=== PATIENT | male | born 1955 | race Caucasian/White ===

== ENCOUNTER 2025-05-25 15:40 | Outpatient (CLI) | payer OTHER, MEDICARE, SELFPAY | END 2025-05-25 15:41 | disposition home or self-care (01) | LOC: AMB 05-29 13:03 | PROVIDERS: Visit Provider Family Medicine | DX: S50.811A Abrasion of right forearm, initial encounter (principal); V43.51XA Car driver injured in collision with sport utility vehicle in traffic accident, initial encounter; Y92.410 Unspecified street and highway as the place of occurrence of the external cause | CPT/HCPCS: A0998 ==

== ENCOUNTER 2025-05-25 17:05 | Emergency (ER) | payer OTHER, MEDICARE, SELFPAY ==
--- OUTSIDE RECORDS SUMMARY | 2021-12-02 05:31 | XMS_ITS | Continuity of Care Document ---
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 Name Role Phone Larisa Hoffmann CRNA Unavailable Unavailable Allergies, Adverse Reactions, Alerts Substance Reaction Status Criticality shellfish derived Anaphylactic shock(severe) Active No Information No Known Drug Allergies Resolved No I nformation Medications Medication Instructions Dosage Effective Dates (start - stop) Status Comments Ozempic 1 mg/dose (4 mg/3 mL) subcutaneous pen injector inject (1MG) by subcutaneous route every week on the same day of each week 1 MG - Active lisinopril 10 mg tablet take 1 tablet by oral route every day 10 MG - Active metformin 500 mg tablet take 2 tablet by oral route 2 times every day 1000 MG - Active atenolol 50 mg tablet take 1 tablet by oral route every day 50 MG - Active glipizide 10 mg tablet take 1 tablet by oral route every day before a meal 10 MG - Active atorvastatin 10 mg tablet take 1 tablet by oral route every day 10 MG - Active Aspirin Low Dose 81 mg Tab, Delayed Release Take one tablet by mouth daily - Active Victoza 3-Rahul 0.6 mg/0.1 mL (18 mg/3 mL) subcutaneous pen injector inject 1.8 milliliter by subcutaneous route every day 10.8 MG - No Longer Active Procedures Procedure Date Colonoscopy Flex; W/remov Les- Level Iv-surg Path Gross/micro Colonoscopy Flex; W/bx 1/mx Level Iv-surg Path Gross/micro 17 Colonoscopy Flex; Dx (sep Pro) 07 Advance Directives Directive Yes / No Effective Date File Name No Information Encounters Encounter Description Practice Location Reason(s) For Visit Diagnoses Date Provider Providers Copied on Encounter [facility] [place], [address] [address], [place], [place], [id number], [place] tel:[phone] [facility] No Information 2 Caruthersberna ESPINOZA Larisa. [address] [facility], [facility] [address], [place], [place], [id number], [place]. tel:[phone] Referring Provider: Blade Mckee MD, [address] [facility] [address], [place], [address] . tel:[phone] [facility] [place], [address] [address], [facility] [place], [address], [place] tel:[phone] [facility] [place] Colorectal polyp detected on colonoscopyInter nal hemorrhoidsEncou nter for screening for malignant neoplasm of colonPersonal history of colonic polypsBenign neoplasm of sigmoid colonOther hemorrhoidsBenig n neoplasm of sigmoid colon 2 Rafi Murguia. [address] [facility], [facility] [address], [place], [place], [address], [place]. tel:[phone] Referring Provider: Referral Self, USE FOR SELF REFERRALS. [facility] [place], [address] [address], [place], [id number], [place] tel:[phone] [facility] [address] No Information 2 Brendan Howard. [address] [facility], [facility] [address], [place], [place], [address], [place]. tel:[phone] [facility] [place], [address] [address], [place], [address], [place] tel:[phone] [facility] Polyp of colon, unspecified part of colon, unspecified typeDiverticulos is large intestine w/o perforation or abscess w/o bleedingEncounte r for screening for malignant neoplasm of colonBenign neoplasm of transverse colonDvrtclos of lg int w/o perforation or abscess w/o bleeding 201 7 Birdie LEONARDO [facility]. [address] [facility], [address], [place], [place], [address], [place]. tel:[phone] Referring Provider: Referral Self, USE FOR SELF REFERRALS. [facility], [address] [address], [place], [place], [address], [place] tel:[phone] [place] [facility] Colon Cancer Screening 2200 7 No Information Referring Provider: Butch Ramos, [address] [place], [address]. tel:[phone] Family History Family Member Type Diagnosis Age At Onset Son Problem (finding) Alive and well Father Problem (finding) Sister Problem (finding) Brother Problem (finding) Alive and well Sister Problem (finding) Alive and well Daughter Problem (finding) Alive and well Mother Problem (finding) Son Problem (finding) diverticulitis of colon Immunizations Vaccine Date Status Comments SARS-COV-2 (COVID-19) vaccin e, mRNA, spike protein, LNP, preservative free, 100 mcg/0.5mL dose or 50 mcg/0.25mL dose administered Note: [facility] bi -directional interface ; Source: Other Registry SARS-COV-2 (COVID-19) vaccin e, mRNA, spike protein, LNP, preservative free, 30 mcg/0.3mL dose administered Note: [facility] bi-direct ional interface ; Source: Other Registry Pneumovax 23 administered Note: [facility] bi-d irectional interface ; Source: Other Registry SARS-COV-2 (COVID-19) vaccin e, mRNA, spike protein, LNP, preservative free, 30 mcg/0.3mL dose administered Note: [facility] bi-direct ional interface ; Source: Other Registry SARS-COV-2 (COVID-19) vaccin e, mRNA, spike protein, LNP, preservative free, 30 mcg/0.3mL dose administered Note: [facility] bi-direct ional interface ; Source: Other Registry Afluria Qd administered Note: [facility] bi-directional interface ; Source: Other Registry zoster vaccine recombinant administered N ote: [facility] bi-directional interface ; Source: Other Registry zoster vaccine recombinant administered N ote: [facility] bi-directional interface ; Source: Other Registry tetanus and diphtheria toxoi ds, adsorbed, preservative free, for adult use (5 Lf of tetanus toxoid and 2 Lf of diphtheria toxoid) administered Note: [facility] bi-direct ional interface ; Source: Other Registry Influenza administered Note: [facility] bi-d irectional interface ; Source: Other Registry Afluria Qd administered Note: [facility] bi-directional interface ; Source: Other Registry Afluria Qd administered Note: [facility] bi-directional interface ; Source: Other Registry Afluria Qd administered Note: [facility] bi-directional interface ; Source: Other Registry Engerix-B administered Note: [facility] bi-d irectional interface ; Source: Other Registry Engerix-B administered Note: [facility] bi-d irectional interface ; Source: Other Registry zoster vaccine, live administered Note: [facility] bi-directional interface ; Source: Other Registry Afluria Qd administered Note: [facility] bi-directional interface ; Source: Other Registry Engerix-B administered Note: [facility] bi-d irectional interface ; Source: Other Registry Influenza, seasonal, injectable administe red Note: [facility] bi- directional interface ; Source: Other Registry Influenza, seasonal, injectable administe red Note: [facility] bi- directional interface ; Source: Other Registry Novel [id number], all formulations administered Note: [facility] bi-direct ional interface ; Source: Other Registry Influenza, seasonal, injectable administe red Note: [facility] bi- directional interface ; Source: Other Registry Influenza, seasonal, injectable administe red Note: [facility] bi- directional interface ; Source: Other Registry Pneumovax 23 administered Note: [facility] bi-d irectional interface ; Source: Other Registry tetanus toxoid, reduced diphtheria toxoid, and acellular pertussis vaccine, adsorbed administered Note: [facility] b i-directional interface ; Source: Other Registry Payers Payer name Insurance type Covered alliance party ID Authoriza tion(s) Blue Cross Medicare Advantage [id number] Social History Type Description Quantity Date Captured Comments Sex Male Smoking Status No Information Chief Complaint And Reason For Visit No Information Reason For Referral Reason For Referral No Information History Of Present Illness Encounter Date Complaint History Of Prese nt Illness No Information Functional Status Date Functional Assessmen t No Information Instructions Date Instruction Additional Infor mation High Fiber Diet Related to Color ectal polyp detected on colonoscopy Colon Polyps Related to Color ectal polyp detected on colonoscopy Hemorrhoids Related to Color ectal polyp detected on colonoscopy Colon Cancer Prevention Related to Polyp of colon, unspecified part of colon, unspecified type Colon Polyps Related to Polyp of colon, unspecified part of colon, unspecified type Diverticulosis/Diverticulitis Re lated to Polyp of colon, unspecified part of colon, unspecified type High Fiber Diet Related to Polyp of colon, unspecified part of colon, unspecified type Assessments Type Assessment Date No Information Patient Care Teams Name Effective Dates (start - stop) Status Members No Information
--- OUTSIDE RECORDS SUMMARY | 2021-12-02 05:31 | XMS_ITS | Continuity of Care Document ---
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 [address] [facility], [facility] [address], [place], [place], [address], [place]. tel:[phone] Referring Provider: Blade Mckee MD, [address] [facility] [address], [place], [address] . tel:[phone] [facility] [place], [address] [address], [facility] [place], [address], [place] tel:[phone] [facility] [place] Colorectal polyp detected on colonoscopyInter nal hemorrhoidsEncou nter for screening for malignant neoplasm of colonPersonal history of colonic polypsBenign neoplasm of sigmoid colonOther hemorrhoidsBenig n neoplasm of sigmoid colon 2 Rafi Murguia. [address] [facility], [facility] [address], [place], [place], [address], [place]. tel:[phone] Referring Provider: Referral Self, USE FOR SELF REFERRALS. [facility] [place], [address] [address], [place], [address], [place] tel:[phone] [facility] No Information 2 Brendan Howard. [address] [facility], [facility] [address], [place], [place], [address], [place]. tel:[phone] [facility] [place], [address] [address], [place], [address], [place] tel:[phone] [facility] Polyp of colon, unspecified part of colon, unspecified typeDiverticulos is large intestine w/o perforation or abscess w/o bleedingEncounte r for screening for malignant neoplasm of colonBenign neoplasm of transverse colonDvrtclos of lg int w/o perforation or abscess w/o bleeding 201 7 Birdie LEONARDO [facility]. [address] [facility], [address], [place], [place], [address], [place]. tel:[phone] Referring Provider: Referral Self, USE FOR SELF REFERRALS. [facility], [address] [address], [place], [place], [address], [place] tel:[phone] [place] [facility] Colon Cancer Screening 2200 7 No Information Referring Provider: Butch Ramos, [address] [place], [address]. tel:[phone] Family History Family Member Type Diagnosis Age [...] directional interface ; Source: Other Registry Novel [id number], all formulations administered Note: [facility] bi-direct ional [...] Registry Payers Payer name Insurance type Covered democrat ID Authoriza tion(s) Blue [employer] Medicare Advantage [id number] Social History Type Description Quantity Date [...]
--- OUTSIDE RECORDS SUMMARY | 2025-05-25 17:07 | XMS_ITS | Clinical Summary ---
Author Organization [facility] Address [address] [place] [id number] Care Team Providers Care Road Equipment Operator Name Role Phone Lucy Harding MD Primary Care Provider Jenaro Jay Mary Ellen DO Unavailable [phone] Radha Mae PharmD Unavailable [phone] Allergies Active Allergy Reactions Criticality Noted Date Comments Shellfish Containing Products Anaphylaxis High 10/08/2017 Throat closes, can't breath,rash,itching Eutksop-Qzp-Ezw Reductase Inhibitors Myalgia 05/22/2023 Medications aspirin 81 mg tablet Take 1 tablet by mouth once daily with a meal. 0 01/01/20 12 Active lancets (ACCU-CHEK FASTCLIX)Indicat ions:Type 2 diabetes mellitus with microalbuminuria , without long-term current use of insulin (HC) Test 3 times per day. 100 Each 3 12/26/19 17 Active DEV PEN NEEDLE 32 gauge x /32Indications :Type 2 diabetes mellitus with microalbuminuria , without long-term current use of insulin (HC) USE DIRECTED 100 Each 3 07/11/20 19 Active magnesium oxide 250 mg magnesium tablet Take 1 tablet by mouth once daily. 0 12/10/19 20 Active multivitamin (MVI) tablet Take 1 tablet by mouth once daily. Active blood sugar diagnostic (Contour Next Test Strips) stripIndications :Type 2 diabetes mellitus with microalbuminuria , without long-term current use of insulin (HC) USE DIRECTED 3 TIMES A DAY 300 Each 3 12/20/19 24 Active nitroglycerin (NITROSTAT) 0.4 mg sublingual tabletIndication s:NSTEMI (non-ST elevated myocardial infarction) (HC),Coronary artery disease involving yurok coronary artery of yurok heart without angina pectoris Place 1 Tablet (0.4 mg) under the tongue every 5 minutes if needed for Chest Pain. 25 Tablet 2 05/13/20 24 Active amLODIPine 5 mg tabletIndication s:Hypertension Take 1 Tablet (5 mg) by mouth once daily. 90 Tablet 3 10/23/19 25 Active ezetimibe 10 mg tabletIndication s:Hyperlipidemia associated with type 2 diabetes mellitus (HC) TAKE 1 TABLET BY MOUTH EVERY DAY 90 Tablet 3 11/17/19 25 Active metFORMIN 1,000 mg tabletIndication s:Type 2 diabetes mellitus with microalbuminuria , without long-term current use of insulin (HC) TAKE 1 TABLET (1000 MG) BY MOUTH TWICE A DAY WITH MEALS 180 Tablet 3 11/17/19 25 Active semaglutide (Ozempic) 2 mg/dose (8 mg/3 mL) subcutaneous penIndications:T ype 2 diabetes mellitus with microalbuminuria , without long-term current use of insulin (HC) INJECT 0.75 ML (2 MG) SUBCUTANEOUS ONCE WEEKLY. 9 mL 3 12/29/19 25 Active evolocumab (Repatha SureClick) 140 mg/mL subcutaneous pen injectorIndicati ons:Mixed hyperlipidemia,C oronary artery disease involving yurok coronary artery of yurok heart without angina pectoris Inject 1 mL (140 mg) subcutaneous every 2 weeks. Inject into abdomen, thigh, or upper arm; rotate injection sites. 6 mL 1 01/30/20 25 Active glipiZIDE extended-release (GLUCOTROL XL) 10 mg Extended-Release tabletIndication s:Type 2 diabetes mellitus with microalbuminuria , without long-term current use of insulin (HC) Take 1 Tablet (10 mg) by mouth two times daily before meals. 180 Tablet 3 02/05/20 25 Active lisinopriL (PRINIVIL; ZESTRIL) 20 mg tabletIndication s:Essential hypertension Take 1 Tablet (20 mg) by mouth two times daily. 200 Tablet 3 03/18/20 25 Active atenoloL (TENORMIN) 50 mg tabletIndication s:Essential hypertension Take 1 Tablet (50 mg) by mouth once daily. 100 Tablet 05/05/20 25 Active atenoloL 50 mg tabletIndication s:Essential hypertension Take 1 Tablet (50 mg) by mouth once daily. 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 Microalbuminuria. HTN (hypertension) Hyperlipidemia associated with type 2 diabetes m giovani Overview (01/08/2014): Needs statin due to DM Resolved Problems Problem Noted Date Diagnosed Date Resolved Date Hyperlipidemia 01/24/2020 03/22/2020 Tobacco abuse 07/06/2014 01/05/2015 Type 2 diabetes mellitus wit h diabetic chronic kidney disease 01/01/2012 08/06/2015 Encounters Date Type Department Care Team Description 05/04/2025 Refill [facility] [address] [place] [address] Lucy Harding MD Refill Request (ATENOLOL) 03/16/2025 Refill [facility] [address] [place] [address] Lucy Harding MD Refill Request (lisinopriL ) 02/23/2025 Refill [facility] [address] [facility] [place] [address] Lucy Harding MD Refill Request (lisinopriL ) from Last 3 Months Immunizations Immunization Administration Dates Next Due AMB INFLUENZA, IIV4 (AGE=>6M OS) JESSI (Flu Clinic Only) 05/09/2018 Amb Influenza, Inact (High-d ose Quadrivalent) (Flu Clinic Only) 04/23/2020 COVID-19 vaccine (Moderna 50mcg/0.5mL) 12YO+ BIVALENT PF, MDV 02/06/2023,05/16/2022 COVID-19 vaccine (Netchemia-Bio NTech 30mcg/0.3mL) PF, MDV 10/16/2020,09/29/2020 Hepatitis B (Adult) 01/05/2015,05/06/2014,2013 Influenza A (H1N1), Inactivated 07/02/2009 Influenza, High-dose Inactivated 03/25/2024 Influenza, IIV3 (Age >=3 years) 05/07/20 12,05/05/2010,04/13/2009,2007 Influenza, IIV4 03/19/2019, 7,05/12/2016,2014,04/06/2014 Influenza, Inactivated AIIV4 (Age 65+ Years) Preserv Free 05/04/2023,04/14/2022 Pneumococcal Conj 20-valent (Prevnar 20) 02/06/2023 Pneumococcal Poly,23-Valent (Pneumovax) 12/22/2020,05/04/2008 Td, Preservative Free (age > = 7 Years) 09/30/2018 Tdap 01/13/2008 Zoster (Shingrix-RZV, recombinant) 12/30/2018, Zoster (Zostavax-ZVL, live) 04/06/2014 Family History Medical History Relation Name Comments Premature CHD (under age 60) Brother 1 Hypertension Brother 2 Heart Disease Brother 3 Needed stents, Twin Heart Disease Brother 4 No Known Problems Brother 5 Hypertension Father Premature CHD (under age 60) Father Good Health Mother at 92, but was never on meds Heart Disease Sister 1 Heart Disease Sister 2 Heart Disease Sister 3 Heart Disease Sister 4 Relation Name Status Comments Brother 1 Alive Brother 2 Alive Brother 3 Alive Brother 4 Alive Brother 5 Alive Father Maternal Grandfather Maternal Grandmother Mother Paternal Grandfather Paternal Grandmother Sister 1 Sister 2 Alive Sister 3 Alive Sister 4 Alive Social History Tobacco Use Types Packs/Day Years Used Date Smoking Tobacco: Former Cigarettes 1.5 10 0 07/23/1979 - 07/23/1989 Smokeless Tobacco: Former Tobacco Cessation:Counseling Given: Yes Comments:20 + years ago Alcohol Use Standard Drinks/Week Comments Yes 0 (1 standard drink = 0.6 oz pur e alcohol) 2 drinks a month PHQ-2 Answer Date Recorded PHQ-2 TOTAL SCORE 0 11/06/2024 Social Connections Answer Date Recorded Do you often feel lonely or isolated from those around you? 0 11/06/2024 Financial Resource Strain Answer Date R ecorded Difficulty of Paying Living Expenses 3 11/06/2024 Difficulty of Paying Living Expenses Not on file 11/06/2024 Food Insecurity Answer Date Recorded Do you worry your food will run out before you are able to buy more? 1 11/06/2024 Transportation Needs Answer Date Record ed Does lack of transportation keep you from medica l appointments? 1 11/06/2024 Does lack of transportation keep you from work, meetings or getting things that you need? 1 11/06/2024 Housing Stability Answer Date Recorded What is your housing situation today? 1 11/06/2024 Utilities Answer Date Recorded Do you have trouble paying f or utilities (for example, heat, electricity, water, phone)? 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 Gender Identity Not on file Sexual Orientation Not on file Occupation Industry Job Start Date Job End Date Retired [employer] Not on file Not on file Not on file Obstetrics History Last Filed Vital Signs Vital Sign Reading Time Taken Comments Blood Pressure 90/50 02/19/2025 1:35 PM CDT Pulse 78 02/19/2025 1:35 PM CDT Temperature 37.2 C (98.9 F) 01/26/2020 7:29 AM CDT Respiratory Rate 12 04/28/2024 9:54 AM CDT Oxygen Saturation 99% 11/06/2024 9:24 AM CDT Inhaled Oxygen Concentration - - Weight 107.5 kg (237 lb 1.6 oz) 02/19/2025 1:35 PM CDT Height 175.3 cm (5' 9) 11/06/2024 9:24 AM CDT Body Mass Index 35.01 11/06/2024 9:24 AM CDT Plan of Treatment Upcoming Encounters Date Type Department Care Team (Late st Contact Info) Description 06/05/2025 10:55 AM HORIZONTAL DRILL OPERATOR Office Visit [facility] [address] [place] [address] Jenaro Jay [address] [place] [address] 06/24/2025 12:00 PM HORIZONTAL DRILL OPERATOR Appointment [facility] [address] [place] [address] 06/24/2025 1:00 PM HORIZONTAL DRILL OPERATOR Appointment [facility] [address] [place] [address] 07/02/2025 11:30 AM HORIZONTAL DRILL OPERATOR Office Visit [facility] [address] [place] [address] Briseida Craig MD [address] [place] [address] Health Maintenance Due Date Last Done Comments RSV vaccine for adults or (1 - Risk 60-74 years 1-dose series) 2015 Influenza Vaccine (#1) 2025 , 05/04/2023, 04/14/2022, Additional history exists BMI (ht and wt on same day) for age 18+ 11/06/2025 11/06/2024, 07/26/2023, 05/22/2023, Additional history exists Medicare Wellness for age 65+ 11/07/2025 11/06/2024, 02/06/2023 Depression screening for age 12+ 11/10/2025 11/10/2024, 11/06/2024, 02/06/2023, Additional history exists Tetanus booster 09/30/2028 09/30/2018, 01/13/2008 Lipids for age 45-75 02/05/2030 02/05/2025, 10/20/2024, 06/02/2024, Additional history exists Colonoscopy through age 75 12/03/203112/02, 11/02/2016, 07/23/2008 Hepatitis B series for 19+ Completed 01/05, 05/06/2014, 04/06/2014 Hepatitis C screening for ag e 18-79 Completed 04/08/2015 Zoster (shingles) series for age 50+ Completed 12/30/2018, 09/30/2018, 04/06/2014 AAA screening age 65-74 Completed 12/30/2020 Pneumococcal series for age 50+ Completed 02/06/2023, 12/22/2020, 05/04/2008 Medical Devices Implanted Type Area Phosphoric Acid Supervisor Device Identifier Shelf Expiration Date Model / Serial / Lot Iol Banks +20 Acrysof Iq [id number] - [id number] Implanted:Qty: 1 on 10/08/2017 by Viktor Beckwith MD at [facility] Right: Eye [employer] 07/22/2021 [id number]. [id number] / [id number] / Procedures Procedure Name Priority Date/Time Associated Diagnosis Comments LIPID PANEL W REFLEX MEASURED LDL Routine 02/05/2025 9:02 AM CDT Hyperlipidemia, unspecified hyperlipidemia type SCAN-COLONOSCOPY 12/02/2021 11:3 0 AM CDT US AORTA Routine 12/30/2020 10:50 AM CDT Screening for AAA (abdominal aortic aneurysm) ANTI HCV Routine 04/08/2015 8:53 AM CDT Need for hepatitis C screening test from Last 3 Months or Most Recently Relevant to Health Maintenance Results * LIPID PANEL W REFLEX MEASURED LDL (02/05/2025 9:02 AM CDT) CHOLESTEROL, TOTAL 97 <200 mg/dL [facility] HDL CHOLESTEROL 54 > OR = 40 mg/dL [facility] TRIGLYCERIDES 106 <150 mg/dL [facility] LDL-CHOLESTEROL 24 mg/dL (calc) [facility] Comment: Reference range: <100 Desirable range <100 mg/dL for primary prevention; <70 mg/dL for patients with CHD or diabetic patients with > or = 2 CHD risk factors. LDL-C is now calculated using the Jeffrey calculation, which is a validated novel method providing better accuracy than the Friedewald equation in the estimation of LDL-C. Jose PÉREZ et al. MARIANNA. 2013;310(19): 5995-9559 (http://education.Clinithink/faq/EAZ467) CHOL/HDLC RATIO 1.8 <5.0 (calc) [facility] NON HDL CHOLESTEROL 43 <130 mg/dL (calc) [facility] Comment: For patients with diabetes plus 1 major ASCVD risk factor, treating to a non-HDL-C goal of <100 mg/dL (LDL-C of <70 mg/dL) is considered a therapeutic option. Blood BLOOD SPECIMEN / Unknown 02/05/2025 9:02 AM CDT 02/05/2025 9:02 AM CDT Karla Roberts MD CHEMISTRY Final Re sult [facility] [address] [place] [address], [facility] [address] [place] [address] * SCAN-COLONOSCOPY (12/02/2021 11:30 AM CDT) Narrative Procedure Note Blade Mckee MD - 12/02/2021 10:50 AM CDT [facility] [address] [facility], [address], [place] [address] Patient Name: Abdulkadir Kerr Gender: Male Exam Date: 12/02/2021 Visit Number: [id number] Age: 66 Years Date of : 1955 Attending MD: Blade Mckee MD Medical Record#: [id number] Procedure: Colonoscopy Indications: Previous adenomatous polyp(s) Referring MD: Referral Self Primary MD: Lucy Harding MD Medications: Intra Procedure Medications: Patient received monitored anesthesia care. Complications: No immediate complications Procedure: An examination of the heart and lungs was performed and found to be withinacceptable limits. . The patient was therefore deemed a reasonablecandidate for endoscopy and sedation. The risks and benefits of the procedure were explained to the patient.After obtaining informed consent, the patient received monitoredanesthesia care and I passed the scope without difficulty via the rectum to the cecum. The appendiceal orificeand ic valve were identified. The scope was retroflexed during theexamination The quality of the prep was good (Miralax/Gatorade/2 tabletsBisacodyl/Magnesium Citrate). This was a complete examination throughout the entire colon. Findings: Polyp location: sigmoid. Quantity: 1. Size: 5 mm. Polyp shape:sessile. Maneuver: polypectomy was performed with a cold snare. Removal: complete. Retrieval: complete. Bleeding: none. Hemorrhoids. Internal hemorrhoids without bleeding. Impression: Colorectal polyp detected on colonoscopy Internal hemorrhoids Preliminary Plan: The patient and their physician will receive a copy of the pathologyreport as well as pathology-based recommendations for future screening orsurveillance. Pathology Results: A: COLON, SIGMOID, POLYP: 1. Tubular adenoma 2. Negative for high grade dysplasia 3. Per the colonoscopy report: a. Polyp size: 5 mm b. Resection: Complete c. Retrieval: Complete MICROSCOPIC A: Performed Electronically signed by: Kali Perez MD Interpreted at [facility], [address] [place] [address] Orders Instruction(s)/Education: Instruction/Education Timeframe Assessment Colon Polyps K63.5 Hemorrhoids K63.5 High Fiber Diet K63.5 Final Plan: Repeat colonoscopy in 7 years for Polyp surveillance. We will attempt to contact you at appropriate intervals via U.S. mail. Wemay not be able to find you or contact you at that time, therefore youshould know that the responsibility for following our recommendation restswith you. If you don't hear from us at the time your procedure is due,please contact our office to schedule an appointment. If your contactinformation should change, please contact our office so that we can updateyour record. _Electronically signed by: Blade Mckee MD 12/02/2021 cc: Lucy Harding MD us Blade Mckee MD OTHER Final Resul t * US AORTA (12/30/2020 10:50 AM CDT) Anatomical Region Laterality Modality Abdomen, AORTA Ultrasound 12/30/2020 3:50 PM CDT Narrative 12/30/2020 3:50 PM CDT For Patients: As a result of the Cures Act, medical imaging exams and procedure reports are released immediately into your electronic medical record. You may view this report before your referring provider. If you have questions, please contact your health care provider. INDICATION: Abdominal aortic aneurysm screening. COMPARISON: None. TECHNIQUE: Lazaro scale and color Doppler images were acquired of the abdominal aorta and iliac arteries. FINDINGS: Sonographic imaging demonstrates a normal appearance of the abdominal aorta and IVC. There is no evidence of aneurysm formation or aortic dissection. Proximally, the aorta measures 2.9 x 2.7 cm in AP and transverse dimension, mid aorta 2.2 x 2.1 cm in AP and transverse dimension, and distally measures 2.0 x 1.7 cm in AP and transverse dimension. The common iliac arteries are patent and measure 1.3 x 1.3 cm in AP and transverse dimension cm on the left and 1.2 x 1.1 cm in AP and transverse dimension. Cm in diameter on the right. There were no suspicious periaortic masses. IMPRESSION: Normal sonographic assessment of the abdominal aorta. Dictated by Fermin Mendoza MD @ Dec 30 2020 3:50PM (Electronically Signed) Procedure Note Fermin Mendoza MD - 12/30/2020 For Patients: As a result of the Cures Act, medical imagingexams and procedure reports are released immediately into your electronicmedical record. You may view this report before your referring provider.If you have questions, please contact your health care provider. INDICATION: Abdominal aortic aneurysm screening. COMPARISON: None. TECHNIQUE: Lazaro scale and color Doppler images were acquired of the abdominal aortaand iliac arteries. FINDINGS: Sonographic imaging demonstrates a normal appearance of the abdominalaorta and IVC. There is no evidence of aneurysm formation or aorticdissection. Proximally, the aorta measures 2.9 x 2.7 cm in AP andtransverse dimension, mid aorta 2.2 x 2.1 cm in AP and transversedimension, and distally measures 2.0 x 1.7 cm in AP and transversedimension. The common iliac arteries are patent and measure 1.3 x 1.3 cmin AP and transverse dimension cm on the left and 1.2 x 1.1 cm in AP andtransverse dimension. Cm in diameter on the right. There were no suspicious periaortic masses. IMPRESSION: Normal sonographic assessment of the abdominal aorta. Dictated by Fermin Mendoza MD @ Raul 2020 3:50PM (Electronically Signed) us Lucy Harding MD Final R esult * ANTI HCV (04/08/2015 8:53 AM CDT) HEPATITIS C ANTIBODY Non-Reacti ve Non-Reacti ve 04/08/2015 5:23 PM CDT [facility] Blood specimen (specimen) BLOOD SPECIMEN / Unknown Venipuncture / Unknown 04/08/2015 8:53 AM CDT 04/08/2015 8:53 AM CDT Narrative [facility] - 04/08/2015 5:23 PM CDT Antibodies to HCV not detected; does not exclude the possibility of exposure to HCV. us Lucy Harding MD SEND OUTS Final R esult [facility] [address] [place] [address], [place] from Last 3 Months or Most Recently Relevant to Health Maintenance Insurance MEDICARE PART A HB ONLY [facility] * Guarantor: LIBERTY GUTIERRES Account Type Relation to Patient Date of Phone Billing Address [facility] [employer] Employer 07[birth year]23[birth year][address] [place] [id number] ATTN A/P [address] [address] [place] [address] Advance Directives * Full Code (Latest Code Status on File) Date Activated Date Inactivated Comments 01/24/2020 4:14 AM 01/26/2020 6:13 PM Question Answer Comments Code Status Discussion: Discussed * Full Code Date Activated Date Inactivated Comments 01/24/2020 3:13 AM 01/24/2020 4:14 AM Question Answer Comments Code Status Discussion: Not Discussed * Full Code Date Activated Date Inactivated Comments 10/08/2017 10:13 AM 10/08/2017 3:44 PM * Full Code Date Activated Date Inactivated Comments 10/08/2017 10:11 AM 10/08/2017 10:[address] Equipment Operator Relationship Specialty [place] [address] [place] [address] PCP - General Family Practice 02/19/14 Jenaro Jay DO [address] [place] [address] Endocrinology 07/25/23 Radha Mae, PharmD [address] [place] [address] Pharmacist Medication Management Pharmacology 05/13/24 05/13/27
[2025-05-25 17:27] VITALS: BP 133/80; PULSE 73; RESP 18; TEMP 36.4; O2SAT 95
== END 2025-05-25 21:02 | disposition home or self-care (01) ==
LOC: ED 20:59
DX: Z53.21 Procedure and treatment not carried out due to patient leaving prior to being seen by health care provider (principal)